=== PATIENT | male | born 1990 | race Caucasian/White ===

== ENCOUNTER 2021-10-31 09:49 | Emergency (ER) | payer SELFPAY ==
[~2021-10-31 09:49] MED LIST: BACTROBAN OINT22 GM EXT; NAPROSYN500 MG PO; ZOFRAN4 MG PO
[2021-10-31 10:39] LABS: HEMOGLOBIN 15.7 gm/dl (14.0-17.5); RED BLOOD COUNT 4.82 M/UL (4.20-5.50); WHITE BLOOD COUNT 7.4 K/UL (4.5-11.0)
[2021-10-31 11:24] LABS: BUN/CREATININE RATIO 8 (0-10)
[2021-10-31] MEDS ORDERED: ZOFRAN4 MG PO (13:50)
== END 2021-10-31 13:58 | disposition home or self-care (01) ==
LOC: ER1 09:49
PROVIDERS: Nurse Practitioner
DX: R11.2 Nausea with vomiting, unspecified (principal); R10.9 Unspecified abdominal pain; F17.210 Nicotine dependence, cigarettes, uncomplicated; Z20.822 Contact with and (suspected) exposure to COVID-19
CPT/HCPCS: 80053; 81001; 83690; 85025; 99284; Q9967; U0002

== ENCOUNTER 2022-05-07 12:58 | Emergency (ER) | payer SELFPAY | END 2022-05-07 15:20 | disposition left against medical advice (07) | LOC: ER1 12:58 | DX: S61.224A Laceration with foreign body of right ring finger without damage to nail, initial encounter (principal); F17.210 Nicotine dependence, cigarettes, uncomplicated; W25.XXXA Contact with sharp glass, initial encounter | CPT/HCPCS: 73140; 99283 ==